=== PATIENT | female | born 1935 | race African-American/Black ===

== ENCOUNTER 2019-03-10 16:05 | Emergency (ER) | payer MEDICARE ==
--- NOTE | 2019-03-10 16:59 | RAD ---
TWO VIEW RIGHT HIP: 03/10/19 INDICATION: Fall. FINDINGS: No fracture or dislocation. There is mild to moderate osteoarthritis. IMPRESSION: No acute fracture of the right hip. POS: C
== END 2019-03-10 18:10 ==
LOC: ERS 16:05
DX: M25.551 Pain in right hip (principal); G30.9 Alzheimer's disease, unspecified; F02.80 Dementia in other diseases classified elsewhere, unspecified severity, without behavioral disturbance, psychotic disturbance, mood disturbance, and anxiety; I10 Essential (primary) hypertension; K21.9 Gastro-esophageal reflux disease without esophagitis; Z79.899 Other long term (current) drug therapy; W18.30XA Fall on same level, unspecified, initial encounter